=== PATIENT | male | born 1965 | race Caucasian/White ===

== ENCOUNTER → 2018-03-23 | Outpatient (CLI) | payer OTHER ==
[~2018-03-23] MED LIST: IOHEXOL 300 mgI/ML (OMNIPAQUE) 150 ML BTL IV ONE
== END ==
LOC: BMCIMAGING 14:14
PROVIDERS: ATTEND Internal Medicine
DX: R05 Cough (principal); R07.9 Chest pain, unspecified; K57.32 Diverticulitis of large intestine without perforation or abscess without bleeding
CPT/HCPCS: Q9967